=== PATIENT | female | born 1975 ===

== ENCOUNTER 2023-09-26 12:37 | Outpatient (CLI) | payer SELFPAY ==
--- NOTE | 2023-09-26 21:48 | XRAY Report ---
PROCEDURE: Wrist 3+V LT INDICATIONS: PAIN LEFT WRIST TECHNIQUE: 3 views of the wrist were acquired. COMPARISON: None. FINDINGS: Bones: Cast material obscures fine bony detail. Fracture at the distal radius. No significant displa cement. No dislocations. Anatomic alignment. No suspicious bony lesions. Soft tissues: No suspicious soft tissue calcifications or masses. IMPRESSION: Anatomic alignment postcasting. Distal radius fracture. Reviewed by: Jason Langston MD on 09/26/2023 9:46 PM PDT Approved by: Jason Langston MD on 09/26/2023 9:46 PM PDT Station ID: [id number]
== END 2023-09-26 12:38 | disposition home or self-care (01) ==
LOC: DI 12:37
PROVIDERS: ATTEND Orthopaedic Surgery
DX: S52.502A Unspecified fracture of the lower end of left radius, initial encounter for closed fracture (principal)

== ENCOUNTER 2023-10-07 16:39 | Outpatient (CLI) | payer OTHER ==
--- NOTE | 2023-10-07 20:37 | XRAY Report ---
PROCEDURE: Wrist 3+V LT INDICATIONS: L WRIST PAIN TECHNIQUE: 3 views of the wrist were acquired. COMPARISON: 09/26/2023. FINDINGS: Bones: There is interval slight healing at distal radial fracture sites. Bony detail is slightly obs cured from overlying cast. Wrist alignment is unchanged from prior study. Mild osteoarthritic changes are noted throughout wrist joints. No suspicious bony lesions. Soft tissues: No suspicious soft tissue calcifications or masses. IMPRESSION: Interval slight healing at distal radial fracture site. Stable wrist alignment. No gross new fracture or dislocation. Mild wrist joint osteoarthritis. Reviewed by: Ludwig Piedra MD on 10/07/2023 8:36 PM PDT Approved by: Ludwig Piedra MD on 10/07/2023 8:36 PM PDT Station ID: [id number]
== END 2023-10-07 16:40 | disposition home or self-care (01) ==
LOC: DI 16:39
PROVIDERS: ATTEND Orthopaedic Surgery
DX: S52.502D Unspecified fracture of the lower end of left radius, subsequent encounter for closed fracture with routine healing (principal); M19.032 Primary osteoarthritis, left wrist

== ENCOUNTER 2023-10-24 08:00 | Outpatient (CLI) | payer OTHER ==
--- NOTE | 2023-10-24 17:49 | XRAY Report ---
PROCEDURE: Wrist 3+V LT INDICATIONS: COLLE'S FX OF LEFT RADIUS TECHNIQUE: 3 views of the wrist were acquired. COMPARISON: X-ray wrist 10/07/2023. FINDINGS: Bones: Stable alignment with less prominent appearance of fracture lucencies within the distal radiu s. No intra-articular extension. Soft tissues: No suspicious soft tissue calcifications or masses. IMPRESSION: Stable alignment interval healing of distal radial fracture. Reviewed by: Faye Tejeda MD on 10/24/2023 5:48 PM PDT Approved by: Faye Tejeda MD on 10/24/2023 5:48 PM PDT Station ID: [id number]
== END 2023-10-24 23:59 | disposition home or self-care (01) ==
LOC: DI.WOS 08:00
PROVIDERS: ATTEND Orthopaedic Surgery
DX: S52.532D Colles' fracture of left radius, subsequent encounter for closed fracture with routine healing (principal)